=== PATIENT | male | born 1980 | race Hispanic/Latino ===

== ENCOUNTER 2019-07-24 11:05 | Emergency (ER) | payer OTHER | END 2019-07-24 11:32 | disposition home or self-care (01) | LOC: EDH 11:05 | DX: M17.0 Bilateral primary osteoarthritis of knee (principal); Z72.0 Tobacco use | CPT/HCPCS: 99281 ==

== ENCOUNTER 2024-06-18 04:19 | Emergency (ER) | payer OTHER ==
[~2024-06-18] VITALS: Ht 175.3 cm; Wt 122.5 kg
[2024-06-18] MEDS: NAPROXEN 500 MG TABLET PO ONE (04:55)
[2024-06-18] MEDS ORDERED: NAPR375T6 PO (06:34)
[2024-06-18 06:39] VITALS: BP 132/82; PULSE 78; RESP 18; TEMP 98.5; O2SAT 97
== END 2024-06-18 06:40 | disposition home or self-care (01) ==
LOC: EDH 04:19
DX: S02.2XXA Fracture of nasal bones, initial encounter for closed fracture (principal); R07.89 Other chest pain; W06.XXXA Fall from bed, initial encounter; Y93.89 Activity, other specified; Y92.89 Other specified places as the place of occurrence of the external cause; Y99.8 Other external cause status
CPT/HCPCS: 70150; 71101; 73562; 93005